=== PATIENT | male | born 1970 | race Two or more races ===

== ENCOUNTER 2017-05-16 10:49 | Emergency (ER) | payer MEDICAID ==
[~2017-05-16] VITALS: Ht 185.4 cm; Wt 125.5 kg
[~2017-05-16 10:49] MED LIST: CEPH250T PO; HYDR-569 PO
[2017-05-16] MEDS ORDERED: LIDOcaine 1% 30ml preserv. free vial IJ STA (11:27)
[2017-05-16] MEDS ORDERED: clindamycin phosphate 150mg/ml inj. IM ONE (11:30)
[2017-05-16] MEDS ORDERED: CLIN-80 PO (12:43)
[2017-05-16] MEDS ORDERED: HYDR-3965 PO (12:43)
[2017-05-16 13:06] VITALS: BP 159/96
== END 2017-05-16 13:08 | disposition home or self-care (01) ==
LOC: ER 10:49
DX: L02.415 Cutaneous abscess of right lower limb (principal); L03.115 Cellulitis of right lower limb; Z79.899 Other long term (current) drug therapy
CPT/HCPCS: 10060; 96372; 99283; A6266; A6449; J3490

== ENCOUNTER 2017-06-02 09:40 | Day surgery (SDC) | payer MEDICAID ==
[~2017-06-02 09:40] MED LIST changes: +CLIN-80 PO; +HYDR-3965 PO
[2017-06-02] MEDS ORDERED: LIDOcaine 2% 5ml jelly ONE (10:35)
== END 2017-06-02 11:00 | disposition home or self-care (01) ==
LOC: WOUND CARE 09:40
PROVIDERS: ATTEND Surgery
DX: L97.811 Non-pressure chronic ulcer of other part of right lower leg limited to breakdown of skin (principal); L02.415 Cutaneous abscess of right lower limb; Z79.899 Other long term (current) drug therapy
CPT/HCPCS: 97597; A6021; A6206; A6212

== ENCOUNTER 2017-06-08 10:34 | Day surgery (SDC) | payer MEDICAID ==
[~2017-06-08 10:34] MED LIST changes: -CEPH250T PO
[2017-06-08] MEDS ORDERED: LIDOcaine 2% 5ml jelly ONE (11:24)
== END 2017-06-08 12:06 | disposition home or self-care (01) ==
LOC: WOUND CARE 10:34
PROVIDERS: ATTEND Surgery
DX: L97.811 Non-pressure chronic ulcer of other part of right lower leg limited to breakdown of skin (principal); Z79.899 Other long term (current) drug therapy
CPT/HCPCS: 97597; A6021; A6212

== ENCOUNTER 2017-06-16 10:35 | Day surgery (SDC) | payer MEDICAID ==
[2017-06-16] MEDS ORDERED: LIDOcaine 2% 5ml jelly ONE (11:04)
== END 2017-06-16 11:51 | disposition home or self-care (01) ==
LOC: WOUND CARE 10:35
PROVIDERS: ATTEND Surgery
DX: L97.811 Non-pressure chronic ulcer of other part of right lower leg limited to breakdown of skin (principal); F17.200 Nicotine dependence, unspecified, uncomplicated; Z79.899 Other long term (current) drug therapy
CPT/HCPCS: 11042; A6021; A6206; A6212

== ENCOUNTER 2017-06-23 10:37 | Day surgery (SDC) | payer MEDICAID ==
[~2017-06-23 10:37] MED LIST changes: -CLIN-80 PO; -HYDR-3965 PO
[2017-06-23] MEDS ORDERED: LIDOcaine 2% 5ml jelly ONE (11:13)
== END 2017-06-23 11:37 | disposition home or self-care (01) ==
LOC: WOUND CARE 10:37
PROVIDERS: ATTEND Surgery
DX: L97.811 Non-pressure chronic ulcer of other part of right lower leg limited to breakdown of skin (principal); F17.200 Nicotine dependence, unspecified, uncomplicated; Z79.899 Other long term (current) drug therapy
CPT/HCPCS: 97597; A6021; A6206; A6212

== ENCOUNTER 2017-07-04 09:50 | Day surgery (SDC) | payer MEDICAID ==
[~2017-07-04 09:50] MED LIST changes: +LIDOcaine 2% 5ml jelly ONE
== END 2017-07-04 10:28 | disposition home or self-care (01) ==
LOC: WOUND CARE 09:50
PROVIDERS: ATTEND Surgery
DX: S80.861D Insect bite (nonvenomous), right lower leg, subsequent encounter (principal); L97.811 Non-pressure chronic ulcer of other part of right lower leg limited to breakdown of skin; F17.200 Nicotine dependence, unspecified, uncomplicated; Z79.899 Other long term (current) drug therapy; W57.XXXD Bitten or stung by nonvenomous insect and other nonvenomous arthropods, subsequent encounter
CPT/HCPCS: 97597; A6021; A6206; A6212

== ENCOUNTER 2017-07-11 10:01 | Day surgery (SDC) | payer MEDICAID ==
[2017-07-11] MEDS ORDERED: LIDOcaine 2% 5ml jelly ONE ×2 (11:04→11:37)
== END 2017-07-11 11:59 | disposition home or self-care (01) ==
LOC: WOUND CARE 10:01
PROVIDERS: ATTEND Surgery
DX: S80.861D Insect bite (nonvenomous), right lower leg, subsequent encounter (principal); L97.811 Non-pressure chronic ulcer of other part of right lower leg limited to breakdown of skin; F17.200 Nicotine dependence, unspecified, uncomplicated; Z79.899 Other long term (current) drug therapy; W57.XXXD Bitten or stung by nonvenomous insect and other nonvenomous arthropods, subsequent encounter
CPT/HCPCS: 11042; A6021; A6212; A6222

== ENCOUNTER 2017-07-18 10:08 | Day surgery (SDC) | payer MEDICAID ==
[2017-07-18] MEDS ORDERED: LIDOcaine 2% 5ml jelly ONE (10:17)
== END 2017-07-18 12:05 | disposition home or self-care (01) ==
LOC: WOUND CARE 10:08
PROVIDERS: ATTEND Surgery
DX: S80.861D Insect bite (nonvenomous), right lower leg, subsequent encounter (principal); L97.811 Non-pressure chronic ulcer of other part of right lower leg limited to breakdown of skin; F17.200 Nicotine dependence, unspecified, uncomplicated; Z79.899 Other long term (current) drug therapy; W57.XXXD Bitten or stung by nonvenomous insect and other nonvenomous arthropods, subsequent encounter
CPT/HCPCS: 97597; A6021; A6212; A6222

== ENCOUNTER 2017-07-25 09:30 | Day surgery (SDC) | payer MEDICAID | END 2017-07-25 10:00 | disposition home or self-care (01) | LOC: WOUND CARE 09:30 | PROVIDERS: ATTEND Surgery | DX: S80.861D Insect bite (nonvenomous), right lower leg, subsequent encounter (principal); F17.200 Nicotine dependence, unspecified, uncomplicated; Z79.899 Other long term (current) drug therapy; W57.XXXD Bitten or stung by nonvenomous insect and other nonvenomous arthropods, subsequent encounter | CPT/HCPCS: 17250; A6021; A6206; A6212 ==

== ENCOUNTER 2017-08-01 10:04 | Day surgery (SDC) | payer MEDICAID ==
[2017-08-01] MEDS ORDERED: LIDOcaine 2% 5ml jelly ONE (10:23)
== END 2017-08-01 11:19 | disposition home or self-care (01) ==
LOC: WOUND CARE 10:04
PROVIDERS: ATTEND Surgery
DX: S80.861D Insect bite (nonvenomous), right lower leg, subsequent encounter (principal); F17.200 Nicotine dependence, unspecified, uncomplicated; Z79.899 Other long term (current) drug therapy; W57.XXXD Bitten or stung by nonvenomous insect and other nonvenomous arthropods, subsequent encounter
CPT/HCPCS: 17250; 87070; 87075; 87102; A6021; A6206; A6212; 97597

== ENCOUNTER 2017-08-08 10:12 | Day surgery (SDC) | payer MEDICAID ==
[2017-08-08] MEDS ORDERED: LIDOcaine 2% 5ml jelly ONE (10:48)
[2017-08-08] MEDS ORDERED: NO HOME MEDS (13:24)
== END 2017-08-08 11:34 | disposition home or self-care (01) ==
LOC: WOUND CARE 10:12
PROVIDERS: ATTEND Surgery
DX: S80.861D Insect bite (nonvenomous), right lower leg, subsequent encounter (principal); F17.200 Nicotine dependence, unspecified, uncomplicated; Z79.899 Other long term (current) drug therapy; W57.XXXD Bitten or stung by nonvenomous insect and other nonvenomous arthropods, subsequent encounter
CPT/HCPCS: 99215; A6021; A6206; A6212

== ENCOUNTER 2017-08-15 10:05 | Outpatient (CLI) | payer MEDICAID ==
[~2017-08-15 10:05] MED LIST changes: -HYDR-569 PO; -LIDOcaine 2% 5ml jelly ONE; +NO HOME MEDS
[2017-08-15] MEDS ORDERED: LIDOcaine 2% 5ml jelly ONE (10:16)
== END 2017-08-15 11:21 | disposition home or self-care (01) ==
LOC: WOUND CARE 10:05
PROVIDERS: ATTEND Surgery
DX: S80.861D Insect bite (nonvenomous), right lower leg, subsequent encounter (principal); F17.200 Nicotine dependence, unspecified, uncomplicated; Z79.899 Other long term (current) drug therapy; W57.XXXD Bitten or stung by nonvenomous insect and other nonvenomous arthropods, subsequent encounter
CPT/HCPCS: 99214

== ENCOUNTER 2017-11-21 11:19 | Emergency (ER) | payer MEDICAID ==
[~2017-11-21] VITALS: Ht 185.4 cm; Wt 122.8 kg
[2017-11-21 12:27] VITALS: BP 178/105
[2017-11-21] MEDS ORDERED: CYCL-1 PO (12:41)
== END 2017-11-21 13:07 | disposition home or self-care (01) ==
LOC: ER 11:19
DX: S76.311A Strain of muscle, fascia and tendon of the posterior muscle group at thigh level, right thigh, initial encounter (principal); F17.200 Nicotine dependence, unspecified, uncomplicated; Z79.899 Other long term (current) drug therapy; X50.1XXA Overexertion from prolonged static or awkward postures, initial encounter; Y93.02 Activity, running; Y92.89 Other specified places as the place of occurrence of the external cause; Y99.8 Other external cause status
CPT/HCPCS: 99283; A6449

== ENCOUNTER 2017-11-28 11:52 | Emergency (ER) | payer MEDICAID ==
[~2017-11-28] VITALS: Ht 185.4 cm; Wt 122.0 kg
[~2017-11-28 11:52] MED LIST changes: +CYCL-1 PO
[2017-11-28 11:57] VITALS: BP 166/88
== END 2017-11-28 12:21 | disposition home or self-care (01) ==
LOC: ER 11:53
DX: S76.811D Strain of other specified muscles, fascia and tendons at thigh level, right thigh, subsequent encounter (principal); X50.1XXD Overexertion from prolonged static or awkward postures, subsequent encounter
CPT/HCPCS: 99281

== ENCOUNTER 2017-12-11 13:23 | Outpatient (CLI) | payer MEDICAID ==
[2017-12-11 13:21] VITALS: BP 168/104
== END 2017-12-11 14:08 | disposition home or self-care (01) ==
LOC: ORTHO 13:23
PROVIDERS: ATTEND Nurse Practitioner Family
DX: S76.311A Strain of muscle, fascia and tendon of the posterior muscle group at thigh level, right thigh, initial encounter (principal); F17.200 Nicotine dependence, unspecified, uncomplicated; X58.XXXD Exposure to other specified factors, subsequent encounter; Y93.64 Activity, baseball; Y92.89 Other specified places as the place of occurrence of the external cause; Y99.8 Other external cause status
CPT/HCPCS: 99213

== ENCOUNTER 2018-01-01 09:41 | Outpatient (CLI) | payer MEDICAID ==
[2018-01-01 09:41] VITALS: BP 153/68
== END 2018-01-01 10:02 | disposition home or self-care (01) ==
LOC: ORTHO 09:41
PROVIDERS: ATTEND Nurse Practitioner Family
DX: S76.311D Strain of muscle, fascia and tendon of the posterior muscle group at thigh level, right thigh, subsequent encounter (principal); F17.200 Nicotine dependence, unspecified, uncomplicated; X58.XXXD Exposure to other specified factors, subsequent encounter; Y93.64 Activity, baseball
CPT/HCPCS: 99212